=== PATIENT | male | born 1990 | race Caucasian/White ===

== ENCOUNTER 2019-09-19 09:53 | Emergency (ER) | payer OTHER, MEDICAID ==
[~2019-09-19 09:53] MED LIST: ONDANSETRON 4MG/2ML VIAL As Ordered ONE; ONDANSETRON 4MG/2ML VIAL ONE
[2019-09-19] MEDS ORDERED: ISOVUE-370 76% 100ML VIAL As Ordered ONE (13:37)
[2019-11-06 03:46] LABS: BASO # 0.1 10^3/uL (0.0-0.2); EOS # 0.1 10^3/uL (0.0-0.5); EOS % 0.9 % (0.0-3.0); HEMOGLOBIN 16.7 g/dl (13.5-17.5); LYMPH # 1.4 10^3/uL (1.5-5.0); LYMPH % 11.2 % (24.0-44.0); MEAN CORPUSCULAR HEMOGLOBIN 30.1 pg (27.0-33.0); MEAN CORPUSCULAR HGB CONC 33.4 g/dl (32.0-36.5); MEAN CORPUSCULAR VOLUME 90.3 fl (80.0-96.0); MONO # 0.8 10^3/uL (0.0-0.8); MONO % 6.2 % (0.0-5.0); NEUTROPHILS % 80.1 % (36.0-66.0); PLATELET COUNT, AUTOMATED 240 10^3/uL (150-450); RED BLOOD COUNT 5.54 10^6/uL (4.30-6.10); WHITE BLOOD COUNT 12.5 10^3/uL (4.0-10.0)
[2019-11-06 03:59] LABS: APPEARANCE, URINE CLEAR (CLEAR); BACTERIA, URINE AUTO NEGATIVE (NEGATIVE); BILIRUBIN, URINE AUTO NEGATIVE (NEGATIVE); BLOOD, URINE BLOOD NEGATIVE (NEGATIVE); COLOR, URINE STRAW (YELLOW); GLUCOSE, URINE (UA) AUTO NEGATIVE (NEGATIVE); KETONE, URINE AUTO NEGATIVE (NEGATIVE); LEUKOCYTE ESTERASE, URINE AUTO NEGATIVE (NEGATIVE); NITRITE, URINE AUTO NEGATIVE (NEGATIVE); PROTEIN, URINE AUTO NEGATIVE (NEGATIVE); RBC, URINE AUTO 1 /HPF (0-3); SPECIFIC GRAVITY URINE AUTO 1.002 (1.002-1.035); SQUAMOUS EPITHELIAL CELL UR AU 0 /HPF (0-6); UROBILINOGEN, URINE AUTO 0.2 mg/dL (0.0-2.0); WBC, URINE AUTO 0 /HPF (0-3)
[2019-11-28 01:20] LABS: BLOOD UREA NITROGEN 11 MG/DL (7-18); CALCIUM LEVEL 9.4 MG/DL (8.5-10.1); CARBON DIOXIDE LEVEL 33 MEQ/L (21-32); CHLORIDE LEVEL 102 MEQ/L (98-107); CREATININE FOR GFR 0.98 MG/DL (0.70-1.30); GLOMERULAR FILTRATION RATE > 60.0 (>60); GLUCOSE, FASTING 98 MG/DL (70-100); POTASSIUM SERUM 4.1 MEQ/L (3.5-5.1); SODIUM LEVEL 138 MEQ/L (136-145)
[2019-11-28 01:21] LABS: ALBUMIN 4.1 GM/DL (3.2-5.2); ALT/SGPT 29 U/L (12-78); BILIRUBIN,DIRECT 0.1 MG/DL (0.0-0.2); BILIRUBIN,TOTAL 0.4 MG/DL (0.2-1.0); LIPASE 199 U/L (73-393); TOTAL PROTEIN 7.8 GM/DL (6.4-8.2)
== END 2019-09-19 15:15 | disposition home or self-care (01) ==
LOC: M ED 09:53
DX: R10.9 Unspecified abdominal pain (principal); F17.200 Nicotine dependence, unspecified, uncomplicated; Z88.8 Allergy status to other drugs, medicaments and biological substances; Z88.3 Allergy status to other anti-infective agents
CPT/HCPCS: 74177; 80048; 80076; 81001; 83690; 85025; 87081; 87086; 96374; 99284; J2405; Q9967

== ENCOUNTER 2019-11-09 20:50 | Emergency (ER) | payer MEDICAID, OTHER ==
[~2019-11-09] VITALS: Ht 167.6 cm; Wt 75.9 kg
[2019-11-09] MEDS ORDERED: LIDOCAINE W/EPINEPHRINE 1% 20ML VIAL As Ordered ONE (22:26)
[2019-11-09 22:46] VITALS: BP 123/59
== END 2019-11-09 22:48 | disposition home or self-care (01) ==
LOC: M ED 20:50
DX: S61.216A Laceration without foreign body of right little finger without damage to nail, initial encounter (principal); W26.8XXA Contact with other sharp object(s), not elsewhere classified, initial encounter; Y99.0 Civilian activity done for income or pay; F17.200 Nicotine dependence, unspecified, uncomplicated; Z88.8 Allergy status to other drugs, medicaments and biological substances

== ENCOUNTER 2019-12-21 09:24 | Emergency (ER) | payer MEDICAID ==
[~2019-12-21] VITALS: Ht 167.6 cm; Wt 74.0 kg
[2019-12-21] MEDS ORDERED: dexameTHASONE 20MG/5ML VIAL (J1100 PER 1MG) IV ONE (09:30)
[2019-12-21] MEDS: COMBIVENT RESPIMAT 100-20MCG INHALER 4GM INH SCH ×3 (10:10→11:39)
[2019-12-21 10:21] LABS: BASO # 0.1 10^3/uL (0.0-0.2); BASO % 1.1 % (0.0-1.0); EOS # 0.1 10^3/uL (0.0-0.5); EOS % 1.3 % (0.0-3.0); HEMATOCRIT 47.2 % (42.0-52.0); HEMOGLOBIN 15.6 g/dl (13.5-17.5); LYMPH # 1.2 10^3/uL (1.5-5.0); LYMPH % 13.1 % (24.0-44.0); MEAN CORPUSCULAR HEMOGLOBIN 29.8 pg (27.0-33.0); MEAN CORPUSCULAR HGB CONC 33.1 g/dl (32.0-36.5); MEAN CORPUSCULAR VOLUME 90.1 fl (80.0-96.0); MONO # 0.8 10^3/uL (0.0-0.8); MONO % 8.2 % (0.0-5.0); NEUTROPHILS % 75.8 % (36.0-66.0); PLATELET COUNT, AUTOMATED 213 10^3/uL (150-450); RED BLOOD COUNT 5.24 10^6/uL (4.30-6.10); WHITE BLOOD COUNT 9.3 10^3/uL (4.0-10.0)
[2019-12-21 10:48] LABS: BLOOD UREA NITROGEN 11 MG/DL (7-18); CALCIUM LEVEL 9.6 MG/DL (8.5-10.1); CARBON DIOXIDE LEVEL 28 MEQ/L (21-32); CHLORIDE LEVEL 106 MEQ/L (98-107); CK-MB VALUE MASS 1.5 NG/ML (<3.6); CPK CREATINE PHOSPHOKINASE 156 U/L (39-308); CREATININE FOR GFR 0.88 MG/DL (0.70-1.30); GLOMERULAR FILTRATION RATE > 60.0 (>60); GLUCOSE, FASTING 106 MG/DL (70-100); MB/CK RELATIVE INDEX 0.96 (< OR =4); POTASSIUM SERUM 3.9 MEQ/L (3.5-5.1); SODIUM LEVEL 139 MEQ/L (136-145); TROPONIN I < 0.02 NG/ML (< 0.10)
--- NOTE | 2019-12-21 11:01 | REP ---
INDICATION: shortness of breath. COMPARISON: None. TECHNIQUE: AP portable chest FINDINGS: Lungs are well inflated. CP angle sharply defined without gross effusion or lateral pleural thickening. No dense consolidation. No air bronchograms. The heart and mediastinal contours are normal. No vascular redistribution. Airway is intact. There is a dextroconvex curve of mid to lower thoracic spine. Slight elevation of the left mainstem bronchus may reflect enlarged left atrium. IMPRESSION: No definite infiltrate, effusion, cardiomegaly or edema. There is slight elevation of the left mainstem bronchus which may reflect some enlargement of the left atrium. <Electronically signed by Kalin Christensen > 12/21/19 1050
[2019-12-21 11:28] LABS: AMPHETAMINES LEVEL URINE NEGATIVE (NEGATIVE); BARBITURATES URINE NEGATIVE (NEGATIVE); BENZODIAZEPINES URINE NEGATIVE (NEGATIVE); CANNABINOIDS URINE NEGATIVE (NEGATIVE); COCAINE METABOLITE URINE NEGATIVE (NEGATIVE); METHADONE URINE NEGATIVE (NEGATIVE); OPIATES URINE NEGATIVE (NEGATIVE); PHENCYCLIDINE URINE NEGATIVE (NEGATIVE)
[2019-12-21] MEDS ORDERED: PRED20TA PO (11:59)
[2019-12-21] MEDS ORDERED: PROV108A INH (12:02)
[2019-12-21 12:09] VITALS: BP 120/62
--- NOTE | 2019-12-21 20:41 | ECGEPIP ---
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
== END 2019-12-21 12:29 | disposition home or self-care (01) ==
LOC: M ED 09:24 → EDBD 09:24 → M ED 12:29
DX: J06.9 Acute upper respiratory infection, unspecified (principal); J45.901 Unspecified asthma with (acute) exacerbation; Z20.828 Contact with and (suspected) exposure to other viral communicable diseases; Z88.8 Allergy status to other drugs, medicaments and biological substances; Z79.51 Long term (current) use of inhaled steroids
CPT/HCPCS: 71045; 80048; 80307; 82550; 82553; 85025; 93005; 94640; 96374; 99284; J1100; U0003

== ENCOUNTER 2020-01-07 19:36 | Emergency (ER) | payer MEDICAID ==
[~2020-01-07] VITALS: Ht 167.6 cm; Wt 72.7 kg
[~2020-01-07 19:36] MED LIST changes: -ONDANSETRON 4MG/2ML VIAL As Ordered ONE; -ONDANSETRON 4MG/2ML VIAL ONE; +PRED20TA PO; +PROV108A INH
[2020-01-07 22:19] VITALS: BP 123/71
--- NOTE | 2020-01-08 08:18 | REP ---
INDICATION: fall, pain COMPARISON: None. TECHNIQUE: AP, lateral, bilateral oblique views of the left elbow. FINDINGS: No acute fracture or dislocation is appreciated. Joint spaces and surrounding soft tissues appear normal. Lateral view demonstrates normal positioning to the anterior and posterior fat pads without evidence for effusion/hemarthrosis. No subcutaneous emphysema or foreign body identified. IMPRESSION: No evidence for acute fracture or dislocation. <Electronically signed by Pedro Luis Slaughter > 01/08/20 [id number]
== END 2020-01-07 22:26 | disposition home or self-care (01) ==
LOC: M ED 19:36
DX: S50.02XA Contusion of left elbow, initial encounter (principal); W11.XXXA Fall on and from ladder, initial encounter; Y92.009 Unspecified place in unspecified non-institutional (private) residence as the place of occurrence of the external cause; Y93.89 Activity, other specified; Y99.8 Other external cause status; Z88.8 Allergy status to other drugs, medicaments and biological substances

== ENCOUNTER 2020-02-03 22:07 | Observation (INO) | payer MEDICAID ==
[~2020-02-03] VITALS: Ht 167.6 cm; Wt 72.7 kg
[2020-02-03] MEDS ORDERED: ONDANSETRON 4MG/2ML VIAL IV ONE (22:45)
[2020-02-03] MEDS ORDERED: PANTOPRAZOLE 40MG VIAL (C9113 PER 1) IV ONE (22:45)
[2020-02-03] MEDS ORDERED: NS 1,000 ML IV ONE (22:45)
[2020-02-03 22:47] LABS: BASO # 0.1 10^3/uL (0.0-0.2); BASO % 0.7 % (0.0-1.0); EOS # 0.1 10^3/uL (0.0-0.5); HEMATOCRIT 51.1 % (42.0-52.0); LYMPH # 1.3 10^3/uL (1.5-5.0); LYMPH % 16.3 % (24.0-44.0); MEAN CORPUSCULAR HEMOGLOBIN 29.8 pg (27.0-33.0); MEAN CORPUSCULAR HGB CONC 35.2 g/dl (32.0-36.5); MEAN CORPUSCULAR VOLUME 84.5 fl (80.0-96.0); MONO # 0.9 10^3/uL (0.0-0.8); MONO % 12.1 % (0.0-5.0); NEUTROPHILS # 5.3 10^3/uL (1.5-8.5); NEUTROPHILS % 69.2 % (36.0-66.0); PLATELET COUNT, AUTOMATED 213 10^3/uL (150-450); RED BLOOD COUNT 6.05 10^6/uL (4.30-6.10); WHITE BLOOD COUNT 7.7 10^3/uL (4.0-10.0)
[2020-02-03 23:36] LABS: BLOOD UREA NITROGEN 27 MG/DL (7-18); CREATININE FOR GFR 1.34 MG/DL (0.70-1.30); GLOMERULAR FILTRATION RATE > 60.0 (>60); GLUCOSE, FASTING 109 MG/DL (70-100)
[2020-02-04 00:03] LABS: CARBON DIOXIDE LEVEL 46 mmol/L (20-29); CHLORIDE LEVEL 70 MEQ/L (98-107); POTASSIUM SERUM 2.4 MEQ/L (3.5-5.1); SODIUM LEVEL 126 MEQ/L (136-145)
[2020-02-04 00:04] LABS: ALBUMIN 4.2 GM/DL (3.2-5.2); ALT/SGPT 42 IU/L (0-32); BILIRUBIN,DIRECT 0.2 MG/DL (0.0-0.2); BILIRUBIN,TOTAL 0.9 MG/DL (0.2-1.0); CALCIUM LEVEL 9.6 MG/DL (8.5-10.1); CK-MB VALUE MASS < 1.0 NG/ML (<3.6); CPK CREATINE PHOSPHOKINASE 181 U/L (39-308); LIPASE 230 U/L (73-393); MB/CK RELATIVE INDEX 0.55 (< OR =4); TROPONIN I 0.02 NG/ML (< 0.10)
[2020-02-04] MEDS ORDERED: KCL 10MEQ/100ML SWI (KRUN) 10 MEQ in IV 1 EA IV ONE (00:15)
[2020-02-04] MEDS ORDERED: POTASSIUM CHLORIDE 10 MEQ SR TABLET PO ONE ×3 (00:15→18:45)
[2020-02-04] MEDS ORDERED: ALBU8.5H INH (00:29)
--- NOTE | 2020-02-04 00:37 | HPEPDOC ---
[facility] Medical History & Physical Date of Admission Feb 04, 2020 Date of Service: Feb 04, 2020 Primary Care Physician: A Attending Physician: ABRAHAM ART MD History and Physical TIME OF SERVICE: 2:24 AM CHIEF COMPLAINT: Vomiting HISTORY OF PRESENT ILLNESS: This 29-year-old gentleman presented with complaints of nausea and vomiting for 2 days. He came to the hospital because he couldn't keep any food down. He also had 6 out of 10 in severity, mid and upper burning abdominal pain, and 2 episodes of "diarrhea" 4 days ago. He denied having fevers, chills, blood in the vomitus or blood in his stools. He reported feeling better after receiving medications in the ER and last vomited at 9 PM yesterday evening. REVIEW OF SYSTEMS: 12 point review of systems negative except as listed in HPI PAST MEDICAL/ SURGICAL HISTORY: Hernia repair 2 Appendectomy SOCIAL HISTORY: He smokes but doesn't drink or use recreational drugs FAMILY HISTORY: The patient doesn't know his family medical history ALLERGIES: Please see below. HOME MEDICATIONS: Please see below. PHYSICAL EXAMINATION: Vital Signs Date Time Temp Pulse Resp B/P (MAP) Pulse Ox O2 Delivery O2 Flow Rate FiO2 02/03/20 22:13 96.7 112 16 101/78 97 Room Air GEN: well-nourished / well developed/ NAD INTEGUMENT: not flushed/ not jaundice HEENT: lips acyanotic /mucus membranes moist and pink / sclera anicteric CVS: RRR/NMRG LUNGS: able to speak full sentences without stopping to take a breath / no c oughing / lungs are clear to auscultation bilaterally on room air ABDOMEN: Contour (flat) / there are no masses or lesions / soft & not tender with palpation MSK/EXTREMITIES: NCAT / range of motion intact in all 4 extremities NEURO: CN 2-12 are grossly intact / speech is not dysarthric PSYCH: alert and oriented to person place and time/ able to understand and follow all commands LABORATORY DATA: 02/03/20 22:37 Immature Granulocyte % (Auto) 0.7, Neutrophils (%) (Auto) 69.2H, Lymphocytes (%) (Auto) 16.3L, Monocytes (%) (Auto) 12.1H, Eosinophils (%) (Auto) 1.0, Basophils (%) (Auto) 0.7, Neutrophils # (Auto) 5.3, Lymphocytes # (Auto) 1.3L, Monocytes # (Auto) 0.9H, Eosinophils # (Auto) 0.1, Basophils # (Auto) 0.1, Nucleated Red Blood Cells % (auto) 0.0, Anion Gap 10, Glomerular Filtration Rate > 60.0, Calcium Level 9.6, Total Bilirubin 0.9, Direct Bilirubin 0.2, Aspartate Amino Transf (AST/SGOT) 31, Alanine Aminotransferase (ALT/SGPT) 42H, Alkaline Phosphatase 115, Total Creatine Kinase 181, Creatine Kinase MB < 1.0, Creatine Kinase MB Relative Index 0.55, Troponin I 0.02, Total Protein 8.0, Albumin 4.2, Albumin/Globulin Ratio 1.1, Lipase 230 ASSESSMENT: Mr. Fernandez is a 29-year-old with no significant medical history who presented with complaints of nausea and vomiting; he will be admitted for management of [place] hyponatremia and hypokalemia. PLAN: 1. Pre-renal [place] 2/2 vomiting Plan: admit to medical floor / f/u Is/Os / IVF / f/u ulytes for FENa or FEUrea 2. Hypokalemia 2/2 vomiting Plan: telemetry / Oral potassium, chloride/follow-up magnesium / f/u BMP 3. Hypochloremic metabolic alkalosis 2/2 vomiting Plan: IVF / f/u BMP 4. Gastroenteritis Likely viral His COVID 19 was neg Plan: Zofran ( QTC was 425) 5. Dehydration Tachycardia & elevated Hg are likely due to dehydration Plan: IVF 6. Mild AST elevation Plan: f/u Hep panel 7. Tobacco abuse. Plan: Smoking cessation education DVT PROPHYLAXIS: SCDs DISPOSITION: home after less than 2 midnight's stay (admitted under observation) Home Medications Scheduled PRN Albuterol Sulfate (Albuterol Sulfate Hfa) 8.5 Gm Hfa.aer.ad, 2 PUFFS INH Q4H PRN for WHEEZING Allergies Coded Allergies: pseudoephedrine (Verified Allergy, Severe, anaphylaxsis, 11/09/19) A-FIB/CHADSVASC A-FIB History Current/History of A-Fib/PAF?: No Current PO Anticoag Therapy: No ABRAHAM ART MD Feb 04, 2020 00:37
[2020-02-04] MEDS ORDERED: ONDANSETRON 4MG/2ML VIAL IV PRN (00:45)
[2020-02-04] MEDS ORDERED: MOM 30ML SUSPENSION UDC PO PRN (00:45)
[2020-02-04] MEDS ORDERED: MAALOX 30 ML SUSP *UDC PO PRN (00:45)
[2020-02-04] MEDS ORDERED: ACETAMINOPHEN TAB 650MG DOSE (2X325MG) PO PRN (00:45)
[2020-02-04 01:11] LABS: HEMATOCRIT 49.4 % (42.0-52.0); HEMOGLOBIN 16.4 g/dl (13.5-17.5); MEAN CORPUSCULAR HEMOGLOBIN 28.1 pg (27.0-33.0); MEAN CORPUSCULAR HGB CONC 33.2 g/dl (32.0-36.5); MEAN CORPUSCULAR VOLUME 84.6 fl (80.0-96.0); PLATELET COUNT, AUTOMATED 228 10^3/uL (150-450); RED BLOOD COUNT 5.84 10^6/uL (4.30-6.10); WHITE BLOOD COUNT 9.6 10^3/uL (4.0-10.0)
[2020-02-04 01:47] LABS: RSV AMPLIFICATION NEGATIVE (NEGATIVE)
[2020-02-04 02:07] VITALS: BP 133/74
[2020-02-04 02:09] LABS: OSMOLALITY SERUM 277 MOSM/KG (275-295)
[2020-02-04 02:50] LABS: ALBUMIN 4.1 GM/DL (3.2-5.2); ALT/SGPT 40 U/L (12-78); BILIRUBIN,TOTAL 0.7 MG/DL (0.2-1.0); BLOOD UREA NITROGEN 25 MG/DL (7-18); CALCIUM LEVEL 9.6 MG/DL (8.5-10.1); CARBON DIOXIDE LEVEL 47 MEQ/L (21-32); CHLORIDE LEVEL 76 MEQ/L (98-107); GLOMERULAR FILTRATION RATE > 60.0 (>60); GLUCOSE, FASTING 137 MG/DL (70-100); MAGNESIUM LEVEL 2.3 MG/DL (1.8-2.4); POTASSIUM SERUM 2.3 MEQ/L (3.5-5.1); SODIUM LEVEL 128 MEQ/L (136-145); TOTAL PROTEIN 7.8 GM/DL (6.4-8.2)
[2020-02-04 06:16] VITALS: BP 129/73
[2020-02-04] MEDS: NS 1,000 ML IV SCH ×2 (10:26→18:24)
[2020-02-04 10:45] LABS: ALBUMIN 3.6 GM/DL (3.2-5.2); ALT/SGPT 36 U/L (12-78); BILIRUBIN,TOTAL 0.7 MG/DL (0.2-1.0); BLOOD UREA NITROGEN 19 MG/DL (7-18); CALCIUM LEVEL 8.8 MG/DL (8.5-10.1); CARBON DIOXIDE LEVEL 43 MEQ/L (21-32); CHLORIDE LEVEL 77 MEQ/L (98-107); CREATININE FOR GFR 1.34 MG/DL (0.70-1.30); GLOMERULAR FILTRATION RATE > 60.0 (>60); GLUCOSE, FASTING 133 MG/DL (70-100); POTASSIUM SERUM 2.4 MEQ/L (3.5-5.1); SODIUM LEVEL 129 MEQ/L (136-145)
[2020-02-04 12:47] LABS: APPEARANCE, URINE CLEAR (CLEAR); BACTERIA, URINE AUTO NEGATIVE (NEGATIVE); BILIRUBIN, URINE AUTO NEGATIVE (NEGATIVE); BLOOD, URINE BLOOD 1+ (NEGATIVE); COLOR, URINE STRAW (YELLOW); GLUCOSE, URINE (UA) AUTO NEGATIVE (NEGATIVE); KETONE, URINE AUTO NEGATIVE (NEGATIVE); LEUKOCYTE ESTERASE, URINE AUTO NEGATIVE (NEGATIVE); NITRITE, URINE AUTO NEGATIVE (NEGATIVE); PROTEIN, URINE AUTO NEGATIVE (NEGATIVE); RBC, URINE AUTO 0 /HPF (0-3); SPECIFIC GRAVITY URINE AUTO 1.003 (1.002-1.035); SQUAMOUS EPITHELIAL CELL UR AU 0 /HPF (0-6); WBC, URINE AUTO 1 /HPF (0-3)
[2020-02-04 13:03] LABS: OSMOLALITY SERUM 273 MOSM/KG (275-295)
[2020-02-04 13:05] LABS: OSMOLALITY URINE 140 MOSM/KG (500-800)
[2020-02-04 13:11] LABS: AMPHETAMINES URINE REFLEX NEGATIVE (NEGATIVE); BARBITURATES URINE REFLEX NEGATIVE (NEGATIVE); BENZODIAZEPINES URINE REFLEX NEGATIVE (NEGATIVE); CANNABINOIDS URINE REFLEX NEGATIVE (NEGATIVE); COCAINE METABOLITE URINE REFLE NEGATIVE (NEGATIVE); METHADONE URINE REFLEX NEGATIVE (NEGATIVE); OPIATES URINE REFLEX NEGATIVE (NEGATIVE); PHENCYCLIDINE URINE REFLEX NEGATIVE (NEGATIVE)
[2020-02-04 13:11] LABS: CREATININE,RANDOM URINE 29.4 MG/DL; POTASSIUM RANDOM URINE 4.7 MEQ/L; SODIUM,RANDOM URINE 10 MEQ/L; UREA NITROGEN RANDOM URINE 267 MG/DL
[2020-02-04] MEDS: POTASSIUM CHLORIDE 10 MEQ SR TABLET PO SCH (13:29)
[2020-02-04 14:00] VITALS: BP 124/71
[2020-02-04 17:49] LABS: BLOOD UREA NITROGEN 19 MG/DL (7-18); CALCIUM LEVEL 8.7 MG/DL (8.5-10.1); CARBON DIOXIDE LEVEL 42 MEQ/L (21-32); CHLORIDE LEVEL 88 MEQ/L (98-107); CREATININE FOR GFR 1.13 MG/DL (0.70-1.30); GLOMERULAR FILTRATION RATE > 60.0 (>60); GLUCOSE, FASTING 112 MG/DL (70-100); POTASSIUM SERUM 3.4 MEQ/L (3.5-5.1); SODIUM LEVEL 135 MEQ/L (136-145)
[2020-02-04 20:00] VITALS: BP 124/74
[2020-02-05] MEDS: NS 1,000 ML IV SCH (04:14)
[2020-02-05 06:00] VITALS: BP 124/73
[2020-02-05 06:17] LABS: HEMATOCRIT 41.2 % (42.0-52.0); MEAN CORPUSCULAR HEMOGLOBIN 29.4 pg (27.0-33.0); MEAN CORPUSCULAR HGB CONC 33.5 g/dl (32.0-36.5); MEAN CORPUSCULAR VOLUME 87.8 fl (80.0-96.0); PLATELET COUNT, AUTOMATED 184 10^3/uL (150-450); RED BLOOD COUNT 4.69 10^6/uL (4.30-6.10); WHITE BLOOD COUNT 9.2 10^3/uL (4.0-10.0)
[2020-02-05 06:24] LABS: HEMOGLOBIN 13.8 g/dl (13.5-17.5)
[2020-02-05 06:40] LABS: ALT/SGPT 29 U/L (12-78); BILIRUBIN,TOTAL 0.3 MG/DL (0.2-1.0); BLOOD UREA NITROGEN 16 MG/DL (7-18); CALCIUM LEVEL 8.1 MG/DL (8.5-10.1); CARBON DIOXIDE LEVEL 36 MEQ/L (21-32); CHLORIDE LEVEL 98 MEQ/L (98-107); CREATININE FOR GFR 0.86 MG/DL (0.70-1.30); GLOMERULAR FILTRATION RATE > 60.0 (>60); GLUCOSE, FASTING 101 MG/DL (70-100); POTASSIUM SERUM 3.2 MEQ/L (3.5-5.1); SODIUM LEVEL 138 MEQ/L (136-145); TOTAL PROTEIN 5.7 GM/DL (6.4-8.2)
[2020-02-05] MEDS ORDERED: KLOR10TA76 PO (08:19)
[2020-02-05] MEDS: POTASSIUM CHLORIDE 10 MEQ SR TABLET PO SCH ×2 (08:33→09:39)
--- NOTE | 2020-02-05 12:19 | ECGEPIP ---
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
--- NOTE | 2020-02-05 16:12 | DS.PDOC ---
Discharge Summary General Date of Admission Feb 03, 2020 at 22:08 Date of Discharge 02/05/20 Attending Physician: Patricia Kohler MD Discharge Summary HISTORY OF PRESENT ILLNESS: This 29-year-old gentleman presented with complaints of nausea and vomiting for 2 days. He came to the hospital because he couldn't keep any food down. He also had 6 out of 10 in severity, mid and upper burning abdominal pain, and 2 episodes of "diarrhea" 4 days ago. He denied having fevers, chills, blood in the vomitus or blood in his stools. He reported feeling better after receiving medications in the ER and last vomited at 9 PM yesterday evening. patient was admitted for electrolyte abnormalities likely 2/2 to gastroenteritis, dehydration, acute kidney injury. HOSPITAL COURSE: Patient was started on IVFs for dehydration. He received multiple replacements daily for low potassium, likely 2/2 to vomiting and diarrhea over several days without PO intake. He no recorded vomiting or diarrhea episodes since admission and denied abdominal pain, fevers, chills, nausea, shortness of breath, chest pain, lethargy. He had a great appetite. By hospital day 2 patient was much improved. Patient's VS remained stable and all electrolytes and Cr had normalized. He was discharged home to follow up with new primary care provider at the end of January. New medication is low dose potassium. On new patient appointment with PCP, they can decide to keep or stop. No complaints at discharge. PAST MEDICAL/ SURGICAL HISTORY: Hernia repair 2 Appendectomy SOCIAL HISTORY: He smokes but doesn't drink or use recreational drugs FAMILY HISTORY: The patient doesn't know his family medical history PHYSICAL EXAMINATION: Vital Signs: Please see below GEN: well-nourished / well developed/ NAD INTEGUMENT: not flushed/ not jaundice HEENT: lips acyanotic /mucus membranes moist and pink / sclera anicteric CVS: RRR/NMRG LUNGS: able to speak full sentences without stopping to take a breath / no coughing / lungs are clear to auscultation bilaterally on room air ABDOMEN: Contour (flat) / there are no masses or lesions / soft & not tender with palpation MSK/EXTREMITIES: NCAT / range of motion intact in all 4 extremities / ankle bracelet on right ankle NEURO: CN 2-12 are grossly intact / speech is not dysarthric PSYCH: alert and oriented to person place and time/ able to understand and follow all commands LABORATORY DATA: Please see below ASSESSMENT: Mr. Fernandez is a 29-year-old with no significant medical history who presented with complaints of nausea and vomiting; he will be admitted for management of [place] hyponatremia and hypokalemia. PLAN: Viral Gastroenteritis- resolved - No longer nauseous, diarrhea or vomiting -COVID neg -Eating and drinking well Pre-renal [place] 2/2 vomiting, diarrhea and dehydration- resolved -Continued on IVFs during hospital stay but resolved hospital day 2 -Taking good PO for fluids and food -Encouraged to drink at least 110-120 ounce of water a day at least -Repeat Cr wnl. Hypokalemia 2/2 vomiting, diarrhea -Required multiple dosings of potassium daily -Will be sent home with KCL20 mEq daily -F/u with PCP to determine need to continue fdc Hypochloremic metabolic alkalosis 2/2 vomiting- resolved Dehydration 2/2 to gastroenteritis- resolved Mild AST elevation likely 2/2 to dehydration- resolved. -Hep panel done but pending, PCP can f/u Tobacco abuse. -Smoking cessation education DISPOSITION: Discharge home today to f/u with new PCP at end of month. TIME SPENT ON DISCHARGE: Greater than 30 minutes. Vital Signs/I&Os Vital Signs Date Time Temp Pulse Resp B/P (MAP) Pulse Ox O2 Delivery O2 Flow Rate FiO2 02/05/20 06:00 98.1 95 18 124/73 (90) 99 Room Air I&O- Last 24 Hours up to 6 AM 02/05/20 06:00 Intake Total 9445 ml Output Total 4890 ml Balance 4555 ml Laboratory Data Labs 24H Laboratory Tests 2 02/04/20 17:06: Anion Gap 5L, Glomerular Filtration Rate > 60.0, Calcium Level 8.7 02/05/20 06:01: Anion Gap 4L, Glomerular Filtration Rate > 60.0, Calcium Level 8.1L, Nucleated Red Blood Cells % (auto) 0.0, Total Bilirubin 0.3#, Aspartate Amino Transf (AST/SGOT) 17, Alanine Aminotransferase (ALT/SGPT) 29, Alkaline Phosphatase 79, Total Protein 5.7L, Albumin 3.0L, Albumin/Globulin Ratio 1.1 CBC/BMP Laboratory Tests 02/04/20 17:06 02/05/20 06:01 02/05/20 12:19 Discharge Medications Scheduled Potassium Chloride (Klor-Con M10) 10 Meq Tab.er.prt, 20 MEQ PO DAILY Scheduled PRN Albuterol Sulfate (Albuterol Sulfate Hfa) 8.5 Gm Hfa.aer.ad, 2 PUFFS INH Q4H PRN for WHEEZING, (Reported) Allergies Coded Allergies: pseudoephedrine (Verified Allergy, Severe, anaphylaxsis, 11/09/19) Patricia Kohler MD Feb 05, 2020 16:12
[2020-02-06 13:59] LABS: HEPATITIS A ANTIBODY IGM NEGATIVE (NEGATIVE); HEPATITIS B CORE ANTIBODY IGM NEGATIVE (NEGATIVE); HEPATITIS B SURFACE ANTIGEN NEGATIVE (NEGATIVE); HEPATITIS C VIRUS ABY INDEX 0.1 INDEX (<0.8)
== END 2020-02-05 15:45 | disposition home or self-care (01) ==
LOC: M ED 22:07 → M ED INP 22:08 → ENRESERV 02-04 01:38 → M MSPAV 02-04 02:07
PROVIDERS: ADMIT Internal Medicine; ATTEND Internal Medicine
DX: K52.9 Noninfective gastroenteritis and colitis, unspecified (principal); N17.9 Acute kidney failure, unspecified; E86.0 Dehydration; E87.3 Alkalosis; E87.6 Hypokalemia; F17.210 Nicotine dependence, cigarettes, uncomplicated; Z88.8 Allergy status to other drugs, medicaments and biological substances
CPT/HCPCS: 36415; 80048; 80053; 80076; 80307; 81001; 82550; 82553; 82570; 83690; 83735; 83930; 83935; 84132; 84133; 84300; 84540; 85025; 85027; 86705; 86709; 86803; 87340; 87631; 93005; 93041; 96361; 96374; 96375; 99285; C9113; J2405

== ENCOUNTER → 2020-05-07 | Outpatient (REF) | payer MEDICAID, MEDICARE, SELFPAY ==
[~2020-05-07] MED LIST changes: +ALBU8.5H INH; +KLOR10TA76 PO
== END ==
LOC: M LAB REF 11:34
PROVIDERS: ATTEND Surgery
DX: U07.1 COVID-19 (principal)

== ENCOUNTER 2021-11-07 12:55 | Outpatient (RCR) | payer MEDICAID ==
[~2021-11-07 12:55] MED LIST changes: +ALBU6.7H6 INH; -KLOR10TA76 PO; +POTA-136 PO; -PROV108A INH
== END 2021-11-15 ==
LOC: M PT 12:55
PROVIDERS: ATTEND Physician Assistant
DX: M77.12 Lateral epicondylitis, left elbow (principal)

== ENCOUNTER 2021-11-29 13:00 | Outpatient (RCR) | payer MEDICAID | END 2021-12-16 | LOC: M PT 13:00 | PROVIDERS: ATTEND Physician Assistant | DX: M77.12 Lateral epicondylitis, left elbow (principal) ==

== ENCOUNTER 2022-04-07 01:45 | Emergency (ER) | payer MEDICAID ==
[2022-04-07] MEDS ORDERED: ACETAMINOPHEN TAB 650MG DOSE (2X325MG) PO ONE (04:20)
[2022-04-07 10:37] VITALS: BP 125/70
== END 2022-04-07 11:00 | disposition home or self-care (01) ==
LOC: EDBD 01:45 → M ED 01:45
DX: S01.01XA Laceration without foreign body of scalp, initial encounter (principal); Y04.0XXA Assault by unarmed brawl or fight, initial encounter; F17.200 Nicotine dependence, unspecified, uncomplicated; Z88.8 Allergy status to other drugs, medicaments and biological substances; Z79.51 Long term (current) use of inhaled steroids; Z79.810 Long term (current) use of selective estrogen receptor modulators (SERMs)

== ENCOUNTER 2022-07-02 09:16 | Emergency (ER) | payer MEDICAID ==
[~2022-07-02] VITALS: Ht 167.6 cm; Wt 79.5 kg
[2022-07-02 09:17] VITALS: BP 128/72
== END 2022-07-02 10:32 | disposition home or self-care (01) ==
LOC: M ED 09:16
DX: Z48.02 Encounter for removal of sutures (principal); Z88.5 Allergy status to narcotic agent; Z79.899 Other long term (current) drug therapy

== ENCOUNTER 2023-02-17 13:56 | Emergency (ER) | payer MEDICAID ==
[~2023-02-17] VITALS: Ht 167.6 cm; Wt 76.6 kg
[2023-02-17] MEDS ORDERED: FAMO20TA5 (14:23)
[2023-02-17] MEDS ORDERED: ZOLO100T (14:23)
[2023-02-17] MEDS ORDERED: DEPA1TAB3 (14:23)
[2023-02-17] MEDS ORDERED: NAPR-837 PO (17:22)
[2023-02-17] MEDS ORDERED: LIDO5DIS41 TD (17:22)
[2023-02-17] MEDS ORDERED: LIDOCAINE 5% (LIDODERM) PATCH TD ONE (17:25)
[2023-02-17 17:29] VITALS: BP 141/86; TEMP 98.6; O2SAT 97
== END 2023-02-17 17:33 | disposition home or self-care (01) ==
LOC: M ED 13:56 → EDBD 13:56 → M ED 17:33
DX: S46.012A Strain of muscle(s) and tendon(s) of the rotator cuff of left shoulder, initial encounter (principal); F17.200 Nicotine dependence, unspecified, uncomplicated; J45.909 Unspecified asthma, uncomplicated; K21.9 Gastro-esophageal reflux disease without esophagitis; Y92.9 Unspecified place or not applicable; Y93.9 Activity, unspecified; Y99.9 Unspecified external cause status; Z79.52 Long term (current) use of systemic steroids; Z79.899 Other long term (current) drug therapy

== ENCOUNTER → 2023-02-23 | Outpatient (CLI) | payer MEDICAID ==
[~2023-02-23] MED LIST changes: +DEPA1TAB3; +FAMO20TA5; +LIDO5DIS41 TD; +NAPR-837 PO; +ZOLO100T
== END ==
LOC: M SOG 08:04
PROVIDERS: ATTEND Physician Assistant
DX: M25.512 Pain in left shoulder (principal); Z53.9 Procedure and treatment not carried out, unspecified reason

== ENCOUNTER 2023-04-01 12:36 | Emergency (ER) | payer MEDICARE, SELFPAY ==
[~2023-04-01] VITALS: Ht 175.3 cm; Wt 75.0 kg
[2023-04-01] MEDS ORDERED: TRAZ-257 PO (12:53)
[2023-04-01] MEDS ORDERED: CLON0.2T PO (12:53)
[2023-04-01] MEDS ORDERED: SERT25TA85 PO (12:53)
[2023-04-01] MEDS ORDERED: DIVA250T67 PO (12:53)
[2023-04-01 13:58] LABS: VENOUS BASE EXCESS -1.6 (-2.0-2.0); VENOUS PARTIAL PRESSURE CO2 43.7 mmHg (38.0-50.0); VENOUS PARTIAL PRESSURE O2 45.1 mmHg (30.0-50.0); VENOUS PH 7.357 UNITS (7.330-7.430); VENOUS STANDARD HCO3 22.7 MMOL/L; VENOUS TOTAL CO2 25.3 MMOL/L (24.0-28.0)
[2023-04-01 14:02] LABS: HEMATOCRIT 40.6 % (42.0-52.0); HEMOGLOBIN 13.5 g/dl (13.5-17.5); MEAN CORPUSCULAR HEMOGLOBIN 29.4 pg (27.0-33.0); MEAN CORPUSCULAR HGB CONC 33.3 g/dl (32.0-36.5); MEAN CORPUSCULAR VOLUME 88.5 fl (80.0-96.0); PLATELET COUNT, AUTOMATED 183 10^3/uL (150-450); RED BLOOD COUNT 4.59 10^6/uL (4.30-6.10); WHITE BLOOD COUNT 8.5 10^3/uL (4.0-10.0)
[2023-04-01 14:13] LABS: INR 1.1; PROTHROMBIN TIME 13.9 SECONDS (12.5-14.5)
[2023-04-01] MEDS: ACETAMINOPHEN TAB 650MG DOSE (2X325MG) PO ONE (14:33)
[2023-04-01 14:34] LABS: ETHYL ALCOHOL (ETHANOL) 0.004 % (0.000-0.010)
[2023-04-01 14:36] LABS: ALBUMIN 3.8 G/DL (3.2-5.2); ALKALINE PHOSPHATASE 83 U/L (46-116); ALT/SGPT 33 U/L (7.0-40); AST/SGOT 12 U/L (<34); BILIRUBIN,DIRECT 0.1 MG/DL (<0.4); BILIRUBIN,TOTAL 0.3 MG/DL (0.3-1.2); BLOOD UREA NITROGEN 15 MG/DL (9-23); CALCIUM LEVEL 8.9 MG/DL (8.5-10.1); CARBON DIOXIDE LEVEL 27 MMOL/L (20-31); CHLORIDE LEVEL 106 MMOL/L (98-107); CPK CREATINE PHOSPHOKINASE 116 U/L (46-171); CREATININE FOR GFR 0.88 MG/DL (0.70-1.30); GLOMERULAR FILTRATION RATE > 60.0 (>60); GLUCOSE, FASTING 106 MG/DL (60-100); POTASSIUM SERUM 4.5 MMOL/L (3.5-5.1); SALICYLATE LEVEL < 3.0 MG/DL (<30); SODIUM LEVEL 138 MMOL/L (136-145); TOTAL PROTEIN 6.6 G/DL (5.7-8.2)
[2023-04-01 14:40] LABS: FREE T4 1.25 NG/DL (0.89-1.76); THYROID STIMULATING HORMONE 0.588 uIU/ML (0.55-4.78)
[2023-04-01 17:15] VITALS: BP 105/64; TEMP 99; O2SAT 98
== END 2023-04-01 17:20 | disposition home or self-care (01) ==
LOC: EDBD 12:36 → M ED 12:36
DX: U07.1 COVID-19 (principal); I45.10 Unspecified right bundle-branch block; Z88.8 Allergy status to other drugs, medicaments and biological substances; Z79.83 Long term (current) use of bisphosphonates; Z79.899 Other long term (current) drug therapy

== ENCOUNTER → 2024-06-23 | Outpatient (REF) | payer MEDICAID ==
[~2024-06-23] MED LIST changes: +CLON0.2T PO; +DIVA250T67 PO; +SERT25TA85 PO; +TRAZ-257 PO
[2024-06-23 18:46] LABS: BASO # 0.1 10^3/uL (0.0-0.2); BASO % 1.5 % (0.0-1.0); EOS # 0.2 10^3/uL (0.0-0.5); EOS % 2.3 % (0.0-3.0); HEMATOCRIT 47.9 % (42.0-52.0); HEMOGLOBIN 15.8 g/dl (13.5-17.5); LYMPH % 21.7 % (24.0-44.0); MEAN CORPUSCULAR VOLUME 90.9 fl (80.0-96.0); MONO # 0.7 10^3/uL (0.0-0.8); MONO % 7.1 % (2.0-8.0); NEUTROPHILS # 6.1 10^3/uL (1.5-8.5); NEUTROPHILS % 66.4 % (36.0-66.0); PLATELET COUNT, AUTOMATED 267 10^3/uL (150-450); RED BLOOD COUNT 5.27 10^6/uL (4.30-6.10); WHITE BLOOD COUNT 9.2 10^3/uL (4.0-10.0)
[2024-06-23 18:49] LABS: ALBUMIN 4.1 G/DL (3.2-5.2); ALKALINE PHOSPHATASE 119 U/L (40-129); ALT/SGPT 40 U/L (7.0-40); AST/SGOT 19 U/L (<34); BILIRUBIN,TOTAL 0.3 MG/DL (0.3-1.2); BLOOD UREA NITROGEN 9 MG/DL (9-23); CALCIUM LEVEL 9.9 MG/DL (8.5-10.1); CARBON DIOXIDE LEVEL 36 MMOL/L (20-31); CHLORIDE LEVEL 96 MMOL/L (98-107); CHOLESTEROL LEVEL 178 MG/DL (<200); CHOLESTEROL RISK RATIO 4.65 (<5); CREATININE FOR GFR 0.83 MG/DL (0.70-1.30); GLOMERULAR FILTRATION RATE > 90.0 (>60); GLUCOSE, FASTING 107 MG/DL (60-100); HDL CHOLESTEROL 38.2 MG/DL (>40); LDL CHOLESTEROL 113.8 MG/DL (<100); NON-HDL-C 139.8 MG/DL; POTASSIUM SERUM 3.7 MMOL/L (3.5-5.1); SODIUM LEVEL 139 MMOL/L (136-145); TOTAL PROTEIN 7.3 G/DL (5.7-8.2); TRIGLYCERIDES LEVEL 130 MG/DL (<150)
[2024-06-23 18:51] LABS: THYROID STIMULATING HORMONE 0.651 uIU/ML (0.55-4.78); TOTAL 25(OH) VITAMIN D 26.7 NG/ML (20.0-100.0)
[2024-06-23 19:04] LABS: ERYTHROCYTE SEDIMENTATION RATE 26 mm/hr (0-15)
== END ==
LOC: M LAB REF 17:28
PROVIDERS: ATTEND Nurse Practitioner Family
DX: E55.9 Vitamin D deficiency, unspecified (principal); Z13.220 Encounter for screening for lipoid disorders; R51.9 Headache, unspecified

== ENCOUNTER → 2024-06-23 | Outpatient (CLI) | payer MEDICAID | LOC: M OUTALCOH 09:51 | PROVIDERS: ATTEND Psychiatry & Neurology Psychiatry | DX: Z03.89 Encounter for observation for other suspected diseases and conditions ruled out (principal); Z72.0 Tobacco use ==

== ENCOUNTER 2024-09-11 17:01 | Emergency (ER) | payer MEDICAID ==
[~2024-09-11] VITALS: Ht 167.6 cm; Wt 75.0 kg
[~2024-09-11 17:01] MED LIST changes: +LIDO1ADH93 TD; -LIDO5DIS41 TD
[2024-09-11 17:15] VITALS: TEMP 98.6
[2024-09-11] MEDS: NS (Normal Saline) 0.9% 1,000 ML IV ONE (18:10)
[2024-09-11 18:13] LABS: BASO # 0.1 10^3/uL (0.0-0.2); BASO % 1.3 % (0.0-1.0); EOS # 0.2 10^3/uL (0.0-0.5); EOS % 1.5 % (0.0-3.0); LYMPH # 1.6 10^3/uL (1.5-5.0); LYMPH % 14.8 % (24.0-44.0); MONO # 0.9 10^3/uL (0.0-0.8); MONO % 8.3 % (2.0-8.0); NEUTROPHILS # 8.0 10^3/uL (1.5-8.5); NEUTROPHILS % 72.8 % (36.0-66.0); PLATELET COUNT, AUTOMATED 226 10^3/uL (150-450)
[2024-09-11 18:32] LABS: AMPHETAMINES LEVEL URINE NEGATIVE (NEGATIVE); BARBITURATES URINE NEGATIVE (NEGATIVE); BENZODIAZEPINES URINE NEGATIVE (NEGATIVE); CANNABINOIDS URINE NEGATIVE (NEGATIVE); COCAINE METABOLITE URINE NEGATIVE (NEGATIVE); METHADONE URINE NEGATIVE (NEGATIVE); OPIATES URINE NEGATIVE (NEGATIVE); PHENCYCLIDINE URINE NEGATIVE (NEGATIVE)
[2024-09-11 18:34] LABS: CALCIUM LEVEL 8.8 MG/DL (8.5-10.1); CARBON DIOXIDE LEVEL 24 MMOL/L (20-31); CHLORIDE LEVEL 108 MMOL/L (98-107); CREATININE FOR GFR 1.00 MG/DL (0.70-1.30); GLOMERULAR FILTRATION RATE > 90.0 (>60); POTASSIUM SERUM 4.1 MMOL/L (3.5-5.1); SODIUM LEVEL 143 MMOL/L (136-145)
[2024-09-11 18:46] VITALS: BP 130/82; O2SAT 98
== END 2024-09-11 19:25 | disposition home or self-care (01) ==
LOC: M ED 17:01 → EDBD 17:01 → M ED 19:25
DX: S60.221A Contusion of right hand, initial encounter (principal); S20.224A Contusion of middle back wall of thorax, initial encounter; W10.8XXA Fall (on) (from) other stairs and steps, initial encounter; M41.24 Other idiopathic scoliosis, thoracic region; I45.10 Unspecified right bundle-branch block; J45.909 Unspecified asthma, uncomplicated; K21.9 Gastro-esophageal reflux disease without esophagitis; Z88.8 Allergy status to other drugs, medicaments and biological substances; Z79.899 Other long term (current) drug therapy; Y92.009 Unspecified place in unspecified non-institutional (private) residence as the place of occurrence of the external cause; Y93.89 Activity, other specified; Y99.9 Unspecified external cause status